=== PATIENT | male | born 1950 | race Hispanic/Latino ===

== ENCOUNTER → 2020-11-27 | Day surgery (SDC) | payer MEDICARE, SELFPAY ==
[~2020-11-27] MED LIST: AMLODIPINE BESYL5 MG PO; ASPIRIN81 MG PO; CRESTOR10 MG PO; DIOVAN HCT 1601 EAC1 PO; METFORMIN HCL500 MG PO; MOXIFLOXACIN HCL(OPTH) 3 ML BTL ONE; OR PHACO EYE KIT ONE; PHENYLEPHRINE HCL 10% 5 ML OPTH SOLN ONE; VASCEPA1 GM PO
[2020-11-27 15:40] VITALS: BP 144/85
== END | disposition home or self-care (01) ==
LOC: OR 10:43
PROVIDERS: ATTEND Ophthalmology
DX: H25.12 Age-related nuclear cataract, left eye (principal); I10 Essential (primary) hypertension; E78.5 Hyperlipidemia, unspecified; E11.9 Type 2 diabetes mellitus without complications; Z01.812 Encounter for preprocedural laboratory examination; Z20.822 Contact with and (suspected) exposure to COVID-19; Z79.84 Long term (current) use of oral hypoglycemic drugs; Z79.82 Long term (current) use of aspirin
CPT/HCPCS: 66984; U0002; V2632

== ENCOUNTER → 2020-12-25 | Day surgery (SDC) | payer MEDICARE, OTHER, SELFPAY ==
[~2020-12-25] MED LIST changes: +FENTANYL CITRATE/PF 100MCG/2 ML INJ ONE; +MIDAZOLAM HCL 2 MG/2 ML VIAL ONE; -MOXIFLOXACIN HCL(OPTH) 3 ML BTL ONE; -PHENYLEPHRINE HCL 10% 5 ML OPTH SOLN ONE; +PREOP PHACO EYE KIT ONE
[2020-12-25 12:50] VITALS: BP 110/65
== END | disposition home or self-care (01) ==
LOC: OR 08:52
PROVIDERS: ATTEND Ophthalmology
DX: H25.11 Age-related nuclear cataract, right eye (principal); I10 Essential (primary) hypertension; E11.9 Type 2 diabetes mellitus without complications; Z01.812 Encounter for preprocedural laboratory examination; Z20.822 Contact with and (suspected) exposure to COVID-19; Z79.82 Long term (current) use of aspirin; Z79.84 Long term (current) use of oral hypoglycemic drugs
CPT/HCPCS: 36415; 66984; 82948; J2250; J3010; U0002 ×2; V2788

== ENCOUNTER → 2021-07-04 | Day surgery (SDC) | payer OTHER ==
[2021-07-02 14:19] LABS: BASOPHILS % 0.8 % (0.0-1.0); EOSINOPHILS # (AUTO) 0.2 (0.0-0.4); EOSINOPHILS % 3.4 % (0.0-6.0); HEMATOCRIT 39.1 % (38.2-49.6); HEMOGLOBIN 13.2 g/dL (14.0-18.0); LYMPHOCYTES # (AUTO) 1.7 (1.0-3.2); LYMPHOCYTES % 31.9 % (18.0-39.1); MEAN CORPUSCULAR HGB CONC 33.8 g/dL (31-35); MEAN CORPUSCULAR VOLUME 91.8 fL (81-99); MONOCYTES # (AUTO) 0.6 (0.2-0.8); MONOCYTES % 10.9 % (4.4-11.3); NEUTROPHILS # (AUTO) 2.8 (2.1-6.9); PLATELET COUNT 333 x10e3/uL (140-360); RED BLOOD COUNT 4.26 x10e6/uL (4.3-5.7); RED CELL DISTRIBUTION WIDTH 13.2 % (11.7-14.4)
[2021-07-02 14:32] LABS: ANION GAP 13.9 mmol/L (8-16); CALCIUM 9.9 mg/dL (8.4-10.2); CREATININE, SERUM 0.94 mg/dL (0.72-1.25); POTASSIUM 3.9 mmol/L (3.5-5.1)
[~2021-07-04] MED LIST changes: +ACETAMINOPHEN-1 EAC4 PO; +BUPIVACAINE HCL 0.5% INJ 30 ML VIAL INJ ONE; -FENTANYL CITRATE/PF 100MCG/2 ML INJ ONE; -MIDAZOLAM HCL 2 MG/2 ML VIAL ONE; +MUPIROCIN 2% OINT 22 GM TUBE ONE; -OR PHACO EYE KIT ONE; -PREOP PHACO EYE KIT ONE; +SODIUM CHLORIDE 0.9% 50ML 50 ML ONE
[2021-07-04 08:40] VITALS: BP 120/67
== END | disposition home or self-care (01) ==
LOC: OR 05:54
PROVIDERS: ATTEND Plastic Surgery
DX: G56.01 Carpal tunnel syndrome, right upper limb (principal); M65.831 Other synovitis and tenosynovitis, right forearm; M65.331 Trigger finger, right middle finger; I10 Essential (primary) hypertension; E11.9 Type 2 diabetes mellitus without complications; R00.1 Bradycardia, unspecified; Z01.810 Encounter for preprocedural cardiovascular examination; Z01.812 Encounter for preprocedural laboratory examination; Z01.818 Encounter for other preprocedural examination; Z20.822 Contact with and (suspected) exposure to COVID-19; Z79.84 Long term (current) use of oral hypoglycemic drugs; Z79.82 Long term (current) use of aspirin
CPT/HCPCS: 25115; 26055; 36415 ×2; 71046; 80048; 82948; 85025; 93005; J0690; U0002